=== PATIENT | male | born 1965 | race Caucasian/White ===

== ENCOUNTER 2024-09-18 03:02 | Emergency (ER) | payer SELFPAY ==
[2024-09-18] MEDS ORDERED: Ondansetron PF 4 MG/2 ML Vial ONE (03:23)
[2024-09-18] MEDS ORDERED: fentaNYL 50 mcg/mL 1 mL Vial ONE (03:23)
[2024-09-18] MEDS ORDERED: Sodium Chloride 0.9% 1,000 ML ONE ×2 (03:23→07:27)
[2024-09-18] MEDS ORDERED: Boostrix 0.5 ML (Tdap) VIAL (>/=7 yrs of age) ONE (03:23)
[2024-09-18 03:49] LABS: #Basophils 0.1 thou/uL (0.0-0.2); #Eosinophils 0.3 thou/uL (0.0-0.7); #Lymphocytes 2.6 thou/uL (1.20-3.40); #Monocytes 0.5 thou/uL (0.11-0.59); #Neutrophils 2.1 thou/uL (1.40-6.50); %Basophils 1.6 % (0.0-1.0); %Eosinophils 5.3 % (0.0-10.0); %Lymphocytes 45.8 % (21.0-51.0); %Monocytes 9.3 % (0.0-10.0); Hemoglobin 13.7 g/dL (14.0-18.0); Mean Corpuscular HGB CONC 33.5 g/dL (32.0-36.0); Mean Corpuscular Hemoglobin 33.4 pg (27.0-31.0); Mean Corpuscular Volume 99.8 fl (78.0-98.0); Mean Platelet Volume 8.5 fL (7.4-10.4); Platelet Count 179 10x3/uL (130-400); Red Blood Cell (RBC) Count 4.11 mill/uL (4.70-6.10); White Blood Cell (WBC) Count 5.6 10x3/uL (4.8-10.8)
[2024-09-18 04:04] LABS: INR-International Normal Ratio 1.1; Prothrombin Time 14.2 sec (12.0-14.7)
[2024-09-18 04:05] LABS: PTT 28.1 sec (22.9-36.1)
[2024-09-18 04:06] LABS: Base Excess-Venous 5.5 mmol/L (-2.0 to 3.0); Bicarbonate (HCO3v) 33.1 mmol/L (22.0-28.0); CO2 Tension (PvCO2) 60.1 mmHg (42.0-51.0); Calcium, Ionized 1.16 mmol/L (1.15-1.33); Chloride 101 mmol/L (98-107); Hemoglobin - Calc 14.1 g/dL (14.0-18.0); Potassium 2.9 mmol/L (3.5-5.1); Sodium 142 mmol/L (138-145); T. Carbon Dioxide 34.9 mmol/L (22.0-28.0); vO2 Saturation-calc 94.3 % (60.0-85.0)
[2024-09-18 04:11] LABS: Acetaminophen Less than 10 mcg/mL (Less than 10); Alcohol Less than 10.0 mg/dL (Less than 10); Salicylate Less than 8.0 mg/dL (Less than 8.0)
[2024-09-18 04:14] LABS: ALT (SGPT) 111 U/L (8-55); AST (SGOT) 106 U/L (5-34); Albumin 3.4 g/dL (3.5-5.0); Alkaline Phosphatase 77 U/L (40-110); Anion Gap 13 mmol/L (10-20); BUN (Urea Nitrogen) 9 mg/dL (8.4-25.7); Bilirubin, Total 0.4 mg/dL (0.2-1.2); Calc. Creatinine Clearance 0 mL/min (70-130); Calcium 8.7 mg/dL (7.8-10.44); Carbon Dioxide 30 mmol/L (22-29); Chloride 101 mmol/L (98-107); Estimated GFR 95; Globulin 2.9 g/dL (2.4-3.5); Glucose 100 mg/dL (70-105); Protein, Total 6.3 g/dL (6.0-8.3); Sodium 141 mmol/L (136-145)
[2024-09-18] MEDS ORDERED: Acetaminophen 325 MG TAB ONE (05:58)
[2024-09-18] MEDS ORDERED: Potassium Chloride 20 MEQ TAB ONE (05:58)
[2024-09-18] MEDS ORDERED: Lidocaine 4% Patch ONE (05:58)
[2024-09-18] MEDS ORDERED: Iopamidol 370 76% 100 ML VIAL ONE (09:00)
== END 2024-09-18 08:17 | disposition home or self-care (01) ==
LOC: MADERS 03:02
DX: S06.0X9A Concussion with loss of consciousness of unspecified duration, initial encounter (principal); S39.012A Strain of muscle, fascia and tendon of lower back, initial encounter; S62.602A Fracture of unspecified phalanx of right middle finger, initial encounter for closed fracture; J96.12 Chronic respiratory failure with hypercapnia; E87.6 Hypokalemia; R74.01 Elevation of levels of liver transaminase levels; F17.210 Nicotine dependence, cigarettes, uncomplicated; Z23 Encounter for immunization; Y08.09XA Assault by strike by other specified type of sport equipment, initial encounter; Y93.89 Activity, other specified; Y92.481 Parking lot as the place of occurrence of the external cause
CPT/HCPCS: 70450; 71260; 72125; 74177; 80053; 80307; 82330; 82435; 82803; 84132; 84295; 84443; 85014; 85025; 85610; 85730; 86850; 86900; 86901; 90471; 90715; 93005; 94760; 96374; 96375; J2405; J3010; J7030; Q9967